=== PATIENT | male | born 1965 | race Caucasian/White ===

== ENCOUNTER 2017-07-02 06:14 | Observation (INO) | payer OTHER ==
[~2017-07-02] VITALS: Ht 195.6 cm; Wt 152.2 kg
[2017-07-02] VITALS (7 sets, daily range): BP systolic 144–155; BP diastolic 79–91; PULSE 74–89; RESP 15–20; TEMP 95.9–97; O2SAT 96–99
[~2017-07-02 06:14] MED LIST: FLUT50SP EACH NARE
[2017-07-02] MEDS ORDERED: POVIDONE IODINE 5% (ANTISEPSIS KIT) 4 APPLICATIONS EACH NARE PRN (06:45)
[2017-07-02] MEDS ORDERED: SODIUM CHLORID 0.9% 500 ML IV PRN (06:45)
[2017-07-02] MEDS ORDERED: LACTATED RINGER'S 1000 ML IV PRN (06:45)
[2017-07-02] MEDS ORDERED: CHLORHEXIDINE GLUCONATE 2 % 1 PACK (2 CLOTHS) TOPICAL PRN (06:45)
[2017-07-02] MEDS ORDERED: AMPICILLIN/SULBAC 3 GM/NS 100 ML IV SCH ×2 (06:45)
[2017-07-02] MEDS ORDERED: METOPROLOL TARTRATE 25 MG TAB PO PRN (06:45)
[2017-07-02] MEDS ORDERED: LIDOCAINE 1%/EPINEPHrine 1:100,000 SOLN 20 ML VIAL ONE (07:13)
[2017-07-02] MEDS ORDERED: OXYMETAZOLINE HCL 0.05% 15 ML NASAL SPRAY ONE (07:13)
[2017-07-02] MEDS ORDERED: MIDAZOLAM HCL 2 MG/2 ML VIAL ONE (07:18)
[2017-07-02] MEDS ORDERED: FAMOTIDINE 20 MG/2 ML VIAL ONE (07:18)
[2017-07-02] MEDS ORDERED: SUGAMMADEX SODIUM 200 MG/2 ML VIAL IV PUSH ONE ×2 (08:13)
--- NOTE | 2017-07-02 08:40 | MP ---
cc: MAYRA CARREON M.D. DATE OF SURGERY 07/02/[address] Mayra carreon PREOPERATIVE DIAGNOSIS 1. Nasal airway obstruction 2. Nasal septal deviation 3. Hypertrophy of inferior turbinates 4. Obstructive sleep apnea POSTOPERATIVE DIAGNOSIS 1. Nasal airway obstruction 2. Nasal septal deviation 3. Hypertrophy of inferior turbinates 4. Obstructive sleep apnea OPERATION PERFORMED 1. Open repair nasal septal fracture. 2. Bilateral submucosal resection of inferior turbinates. INDICATIONS The indications are documented in the history and physical. DESCRIPTION OF OPERATION The patient was taken to OR #2 and placed in the supine position. Following induction of general anesthesia and intubation, the nose was packed bilaterally with cotton pledgets saturated in 0.05% Oxymetazoline. The nasal septal mucosa and the inferior turbinates were injected with a total of 10 mL of 1% Xylocaine with epinephrine 1:100,000. He was then prepped and draped for surgery. The packing was removed and a hemitransfixion incision was made in the left nasal vestibule. Through this incision, the mucosa of the septum was elevated bilaterally as far as the junction of the bony and cartilaginous septum. This exposed the quadrangular cartilage which showed evidence of old fracture and was sharply deviated toward the left obstructing the left nasal airway. A cumulative area of 2 x 2 cm was removed preserving 1.5 cm dorsal and caudal cartilaginous struts. The mucosa was then elevated from the bony septum and the bony septum was removed with [place] forceps and a Harsh septal forceps. The maxillary crest was removed with a 6-mm Adrianna chisel preserving the anterior nasal spine. The incision was then closed with a running suture of 4-0 chromic and the mucosal layers of the septum were approximated to each other with a quilting stitch of 4-0 plain gut. The inferior turbinates were then fractured out medially and stab incisions were opened along their inferior surfaces. Through these incisions, the submucosal soft tissue was reduced using a curette and preserving the conchal bone. The incisions were then cauterized with the suction Bovie at 35 ramirez and the inferior turbinate remnants were then relateralized to the lateral nasal wall. The nasal vault was packed bilaterally with 5.5 cm rapid rhino packs each inflated with 5 mL of air and the procedure was terminated. The patient was reversed from anesthesia and taken to recovery in good condition. There were no complications. The blood loss was 50 mL. MD DANA Ro/JOSAFAT /8:17 AM /8:29 AM
[2017-07-02] MEDS: ACETAMINOPHEN 325MG/HYDROcodone 7.5MG/15ML UDC PO PRN (13:15)
[2017-07-02] MEDS: LACTATED RINGER'S 1000 ML INJ 1,000 ML IV SCH ×2 (13:21→23:26)
--- NOTE | 2017-07-02 15:22 | EKG ---
Date Performed: 07/02/2017 Time Performed: 07:12:42 PTAGE: 51 years EKG: Sinus rhythm NORMAL ECG NO PREVIOUS TRACING DOCTOR: Ann De La Cruz Interpretating Date/Time 07/02/2017 15:20:41
[2017-07-02] MEDS: AMPICILLIN/SULBAC 3 GM/NS 100 ML IV SCH ×4 (16:03→23:27)
[2017-07-03] VITALS: BP 141/82; PULSE 88; RESP 20; TEMP 97; O2SAT 97
[2017-07-03 04:00] VITALS: BP 134/73; PULSE 71; RESP 20; TEMP 96.7
[2017-07-03] MEDS: AMPICILLIN/SULBAC 3 GM/NS 100 ML IV SCH ×2 (06:12)
[2017-07-03] MEDS: ACETAMINOPHEN 325MG/HYDROcodone 7.5MG/15ML UDC PO PRN (06:16)
[2017-07-03 08:44] VITALS: BP 142/76; PULSE 78; RESP 18; TEMP 97.6; O2SAT 100
== END 2017-07-03 13:04 | disposition home or self-care (01) ==
LOC: PHSDC 06:14 → PH3B 10:11
PROVIDERS: ADMIT Otolaryngology; ATTEND Otolaryngology
DX: J34.2 Deviated nasal septum (principal); J34.3 Hypertrophy of nasal turbinates; G47.33 Obstructive sleep apnea (adult) (pediatric); Z01.810 Encounter for preprocedural cardiovascular examination
CPT/HCPCS: 00160; 21335; 30140; 93005; 94762; 96365; G0378; J0295; J7120; J2250